=== PATIENT | male | born 1950 | race Caucasian/White ===

== ENCOUNTER 2019-03-23 09:18 | Emergency (ER) | payer OTHER ==
--- NOTE | 2019-03-23 09:40 | RAD REPORT ---
EXAM DESCRIPTION: CT - Ct Stroke Brain Wo Cont - 03/23/2019 9:28 am CLINICAL HISTORY: CONFUSED Headache, drowsiness, CVA symptomology COMPARISON: No comparisons TECHNIQUE: All CT scans are performed using dose optimization technique as appropriate and may inclu de automated exposure control or mA/KV adjustment according to patient size. FINDINGS: No intracranial hemorrhage, hydrocephalus or extra-axial fluid collection.No areas of brai n edema or evidence of midline shift. A hyperdense middle cerebral artery branches seen in the left s ylvian fissure. The paranasal sinuses and mastoids are clear. The calvarium is intact. IMPRESSION: No acute hemorrhage or hydrocephalus. A hyperdense middle cerebral artery branch vessel in the sylvian fissure is identified on the left. While often this is artifactual, it could indicate acute occlusion/thrombus. MR brain/MRA hopi Costello may be useful for further clarification. The findings were discussed with Dr. Bahena on 03/23/2019 at 9:35 a.m. by telephone.
[2019-03-23 10:04] LABS: Absolute Lymphocytes (CBC) 0.6 K/uL (0.7-4.9); Absolute Monocytes 0.3 K/uL (0.1-1.3); Absolute Neutrophil 4.1 K/uL (1.8-8.0); Basophils % 0.7 % (0-1.3); Hematocrit 41.2 % (39.6-49.0); Lymphocytes % 11.5 % (15.3-44.8); MPV 10.1 fL (7.6-11.3); RBC Red Blood Cell Count 4.41 M/uL (4.33-5.43)
[2019-03-23 10:08] LABS: Protime INR 0.93
[2019-03-23 10:18] LABS: Potassium 5.1 mmol/L (3.5-5.1)
--- NOTE | 2019-03-23 10:39 | RAD REPORT ---
EXAM DESCRIPTION: RAD - Chest Single View - 03/23/2019 10:06 am CLINICAL HISTORY: Shortness of breath, weakness COMPARISON: May 2007 TECHNIQUE: AP portable chest image was obtained 0959 hours . FINDINGS: Lung volumes are low. Delete select Sternotomy wires have been placed since the far remote comparison. No peripheral mass, consolidation or acute failure finding. Heart and vasculature are no rmal. No measurable pleural effusion and no pneumothorax. No acute bony abnormality seen. No acute ao rtic findings suspected. IMPRESSION: No acute cardiopulmonary process. No suspicious change from comparison.
--- NOTE | 2019-03-23 10:49 | ER ---
Nurse's Notes [facility] Name: Garth Villela Age: 69 yrs Sex: Male : 1950 Arrival Date: 03/23/2019 Time: 09:19 Bed 3 Private MD: Garth Osorio T Diagnosis: Cerebral infarction Presentation: 03/23 09:20 Presenting complaint: states: "He woke up this morning at 0530 and let me sleep in ss until 0915 and he told me he was having trouble with the remote when he woke up and I noticed his speech was off." Pt reports he is intermittently getting his words mixed up since he woke up this morning. Denies pain. VAN scoring negative. Transition of care: patient was not received from another setting of care. Onset of symptoms is unknown. Risk Assessment: Do you want to hurt yourself or someone else? Patient reports no desire to harm self or others. Initial Sepsis Screen: Does the patient meet any 2 criteria? No. Patient's initial sepsis screen is negative. Does the patient have a suspected source of infection? No. Patient's initial sepsis screen is negative. Care prior to arrival: None. 09:20 Method Of Arrival: Ambulatory ss 09:20 Acuity: YUE 2 ss Triage Assessment: 09:20 General: Appears in no apparent distress. tw2 Historical: - Allergies: 09:37 No Known Allergies; ss - Home Meds: 09:37 aspirin 81 mg Oral TbEC 1 tab once daily [Active]; "something for cholesterol" [Active];ss - PMHx: 09:37 High Cholesterol; ss - PSHx: 09:37 CABG; ss - Immunization history:: Adult Immunizations up to date. - Social history:: Smoking status: Patient/guardian denies using tobacco. - Ebola Screening: : Patient denies exposure to infectious person Patient denies travel to an Ebola-affected area in the 21 days before illness onset. Screenin:49 Patient has been NPO before screening. The patient is alert, able to follow commands. tw2 The patient does not exhibit slurred or garbled speech The patient is not exhibiting difficulty speaking. The patient does not exhibit difficulty understanding words. The patient is able to swallow own secretions with no drooling or need for suction. Patient tolerated one teaspoon of water. No drooling, immediate coughing, gurgling, or clearing of the throat was noted. The patient tolerated 90mL of water. No drooling, immediate coughing, gurgling, or clearing of the throat was noted. The patient passed the bedside swallow screening. Oral medications may be given as ordered. Contact Physician for further diet orders. Provider notified of bedside swallow screening results: Yahir Bahena MD. 09:59 Abuse screen: Denies threats or abuse. Nutritional screening: No deficits noted. tw2 Tuberculosis screening: No symptoms or risk factors identified. Fall Risk Secondary diagnosis (15 points) impaired mobility. Assessment: 09:21 Reassessment: To CT VIA wheelchair. ss 09:30 General: Appears in no apparent distress. well groomed, Behavior is calm, cooperative, tw2 appropriate for age. Pain: Denies pain. Neuro: Level of Consciousness is awake, alert, obeys commands, Oriented to person, place, time, situation, Speech with expressive aphasia noted. Neuro: Exceptional Children Teacher are equal bilaterally Moves all extremities. Full function. Cardiovascular: Heart tones S1 S2 Patient's skin is warm and dry. Respiratory: Airway is patent Respiratory effort is even, unlabored, Respiratory pattern is regular, symmetrical, Breath sounds are clear bilaterally. GI: No signs and/or symptoms were reported involving the gastrointestinal system. Abdomen is flat, non-distended, Bowel sounds present X 4 quads. : No signs and/or symptoms were reported regarding the genitourinary system. EENT: No signs and/or symptoms were reported regarding the EENT system. Derm: No signs and/or symptoms reported regarding the dermatologic system. Musculoskeletal: Range of motion: intact in all extremities. 10:30 Reassessment: Patient appears in no apparent distress at this time. No changes from tw2 previously documented assessment. Patient and/or family updated on plan of care and expected duration. Pain level reassessed. Patient is alert, oriented x 3, equal unlabored respirations, skin warm/dry/pink. 10:46 Reassessment: pt to MRI at this time via w/c. tw2 11:47 Reassessment: Patient appears in no apparent distress at this time. No changes from tw2 previously documented assessment. Patient and/or family updated on plan of care and expected duration. Pain level reassessed. Patient is alert, oriented x 3, equal unlabored respirations, skin warm/dry/pink. Vital Signs: 09:37 BP 184 / 79; Pulse 68; Resp 16; Temp 98.2(TE); Pulse Ox 100% on R/A; Weight 88.45 kg; ss Height 6 ft. 0 in. (182.88 cm); Pain 0/10; 10:17 BP 131 / 77; Pulse 60; Resp 15; Pulse Ox 100% on R/A; tw2 11:17 BP 131 / 77; Pulse 61; Resp 17; Pulse Ox 98% on R/A; tw2 11:47 BP 147 / 74; Pulse 64; Resp 17; Pulse Ox 98% on R/A; tw2 09:37 Body Mass Index 26.45 (88.45 kg, 182.88 cm) NIH Stroke Scale Scores: 11:23 NIHSS Score: 1 ED Course: 09:19 Patient arrived in ED. rg4 09:20 Garth Osorio MD is Private Physician. rg4 09:27 Bed in low position. Call light in reach. Side rails up X2. Adult w/ patient. Cardiac tw2 monitor on. Pulse ox on. NIBP on. 09:29 CT Stroke Brain w/o Contrast In Process Unspecified. EDMS 09:29 Hellen Monsalve, PHILIP is Primary Nurse. hb 09:31 Yahir Bahena MD is Attending Physician. gs 09:35 Triage completed. ss 09:37 Arm band placed on right wrist. ss 09:43 EKG done, by pathology tech. reviewed by Yahir Bahena MD. at1 09:55 Inserted saline lock: 20 gauge in left antecubital area, using aseptic technique. Blood tw2 collected. 10:03 Stroke CXR 1 View In Process Unspecified. EDMS 10:15 initiated a transfer with Saida at the [facility]. eb 10:[address] Torres the neurologist visitor services information assistant for [facility] with Dr. Bahena for patient eb transfer consultation. 10:[address] Eugene the hospitalist visitor services information assistant for [facility] with Dr. Bahena for eb patient transfer consultation. 10:54 Patient moved to [facility] via wheelchair. em2 10:57 administrative approval given by Saida Barnett RN from the [facility] transfer eb center/ patient has been accepted to [facility] 22 tower bed 2234/ Dr. Eugene has accepted the patient in transfer/ report to be called [phone]. 11:00 MRI - Brain Wo Cont In Process Unspecified. EDMS 11:12 No provider procedures requiring assistance completed. Patient transferred, IV remains tw2 in place. 11:16 Report given to Jesi Cintron RN. tw2 11:19 MRI completed. Patient tolerated well. Patient moved back from MRI. em2 Administered Medications: 11:45 Drug: Aspirin Chewable Tablet 324 mg Route: PO; tw2 11:47 Follow up: Response: No adverse reaction tw2 Point of Care Testing: Blood Glucose: 10:12 Blood Glucose: 116 mg/dL; tw2 Ranges: Output: 11:17 Urine: 500ml (Voided); Total: 500ml. tw2 Outcome: 10:48 ER care complete, transfer ordered by . gs 11:49 Patient left the ED. tw2 NIH Stroke Scale - NIH Stroke Score Date: 03/23/2019 Time: 11:23 Total Score = 1 1a. Level of Consciousness (LOC) - 0(Alert) 1b. Level of Consciousness (LOC) (Year \\T\\ Age) - 0(Both) 1c. LOC Commands (Open \\T\\ Closes Eyes/Power System Operator) - 0(Both) 2. Best Gaze (Lateral Gaze Paresis) - 0(Normal) 3. Visual Field Loss - 0(No visual loss) 4. Facial Palsy - 0(Normal) 5a. Left Arm: Motor (10-second hold) - 0(No drift) 5b. Right Arm: Motor (10-second hold) - 0(No drift) 6a. Left Leg: Motor (5-second hold - always test supine) - 0(No drift) 6b. Right Leg: Motor (5-second hold - always test supine) - 0(No drift) 7. Limb Ataxia (finger/nose \\T\\ heel/nolen - test with eyes open) - 0(Absent) 8. Sensory Loss (pinprick arms/legs/face) - 0(Normal) 9. Best Language: Aphasia (description/naming/reading) - 0(No aphasia) 10. Dysarthria (speech clarity - read or repeat words) - 1(Mild to Moderate) 11. Extinction and Inattention (visual/tactile/auditory/spatial/personal) - 0(No abnormality) Initials: Signatures: Dispatcher [employer] Lisbeth Lawson, RN RN Jamison Caballero em2 Violette Valladares, insurance sales associate EKG Tat1 Hellen Monsalve RN RN Telma Rodgers RN RN tw2 Carmenza Mcgee rg4 Yahir Bahena MD MD gs Botello, Elizabeth eb
--- NOTE | 2019-03-23 10:49 | EDPHYS ---
Physician Documentation [facility] Name: Garth Villela Age: 69 yrs Sex: Male : 1950 Arrival Date: 03/23/2019 Time: 09:19 Bed 3 Private MD: Garth Osorio T ED Physician Yahir Bahena HPI: 03/23 10:43 This 69 yrs old Male presents to ER via Ambulatory with complaints of gs difficulty speaking. 10:43 The patient presents to the emergency department with a speech or higher order brain gs function problem, aphasia. Onset: The symptoms/episode began/occurred today, at 05:30. Context: occurred at home. Associated signs and symptoms: Pertinent negatives: altered mental status. Severity of symptoms: At their worst the symptoms were moderate in the emergency department the symptoms are unchanged. Patient's baseline: Neuro: alert and fully oriented, Motor: no deficits, Ambulation: walks without assistance. The patient has not experienced similar symptoms in the past. Historical: - Allergies: 09:37 No Known Allergies; ss - Home Meds: 09:37 aspirin 81 mg Oral TbEC 1 tab once daily [Active]; "something for cholesterol" [Active];ss - PMHx: 09:37 High Cholesterol; ss - PSHx: 09:37 CABG; ss - Immunization history:: Adult Immunizations up to date. - Social history:: Smoking status: Patient/guardian denies using tobacco. - Ebola Screening: : Patient denies exposure to infectious person Patient denies travel to an Ebola-affected area in the 21 days before illness onset. ROS: 10:43 All other systems are negative. gs Exam: 10:43 Head/Face: Normocephalic, atraumatic. Eyes: Pupils equal round and reactive to light, gs extra-ocular motions intact. Lids and lashes normal. Conjunctiva and sclera are non-icteric and not injected. Cornea within normal limits. Periorbital areas with no swelling, redness, or edema. ENT: Nares patent. No nasal discharge, no septal abnormalities noted. Tympanic membranes are normal and external auditory canals are clear. Oropharynx with no redness, swelling, or masses, exudates, or evidence of obstruction, uvula midline. Mucous membranes moist. Neck: Trachea midline, no thyromegaly or masses palpated, and no cervical lymphadenopathy. Supple, full range of motion without nuchal rigidity, or vertebral point tenderness. No Meningismus. Chest/axilla: Normal chest wall appearance and motion. Nontender with no deformity. No lesions are appreciated. Cardiovascular: Regular rate and rhythm with a normal S1 and S2. No gallops, murmurs, or rubs. Normal PMI, no JVD. No pulse deficits. Respiratory: Lungs have equal breath sounds bilaterally, clear to auscultation and percussion. No rales, rhonchi or wheezes noted. No increased work of breathing, no retractions or nasal flaring. Abdomen/GI: Soft, non-tender, with normal bowel sounds. No distension or tympany. No guarding or rebound. No evidence of tenderness throughout. Back: No spinal tenderness. No costovertebral tenderness. Full range of motion. Skin: Warm, dry with normal turgor. Normal color with no rashes, no lesions, and no evidence of cellulitis. MS/ Extremity: Pulses equal, no cyanosis. Neurovascular intact. Full, normal range of motion. 10:43 Constitutional: The patient appears alert, awake. 10:43 ECG was reviewed by the Attending Physician. Vital Signs: 09:37 BP 184 / 79; Pulse 68; Resp 16; Temp 98.2(TE); Pulse Ox 100% on R/A; Weight 88.45 kg; ss Height 6 ft. 0 in. (182.88 cm); Pain 0/10; 10:17 BP 131 / 77; Pulse 60; Resp 15; Pulse Ox 100% on R/A; tw2 11:17 BP 131 / 77; Pulse 61; Resp 17; Pulse Ox 98% on R/A; tw2 11:47 BP 147 / 74; Pulse 64; Resp 17; Pulse Ox 98% on R/A; tw2 09:37 Body Mass Index 26.45 (88.45 kg, 182.88 cm) NIH Stroke Scale Scores: 11:23 NIHSS Score: 1 gs MDM: 09:34 Patient medically screened. gs 10:43 Data reviewed: vital signs, nurses notes, lab test result(s), EKG, radiologic studies. gs Counseling: I had a detailed discussion with the patient and/or guardian regarding: the historical points, exam findings, and any diagnostic results supporting the discharge/admit diagnosis, lab results, radiology results, the need to transfer to another facility. 11:23 Response to treatment: the patient's symptoms have mildly improved after treatment, and gs as a result, I will transfer. 03/23 09:43 Order name: Basic Metabolic Panel; Complete Time: 10:39 03/23 09:43 Order name: CBC with Diff; Complete Time: 10:39 03/23 09:22 Order name: CT Stroke Brain w/o Contrast; Complete Time: 10:39 03/23 09:43 Order name: Protime (+inr); Complete Time: 10:39 03/23 09:43 Order name: Ptt, Activated; Complete Time: 10:39 03/23 09:42 Order name: MRI - Brain Wo Cont; Complete Time: 11:27 03/23 09:43 Order name: Stroke CXR 1 View; Complete Time: 10:41 03/23 09:43 Order name: EKG; Complete Time: 09:44 03/23 09:43 Order name: Accucheck; Complete Time: 10:11 03/23 09:43 Order name: Cardiac monitoring; Complete Time: 10:09 03/23 09:43 Order name: EKG - Nurse/Tech; Complete Time: 10:09 03/23 09:43 Order name: IV Saline Lock; Complete Time: 09:57 03/23 09:43 Order name: Labs collected and sent; Complete Time: 09:57 03/23 09:43 Order name: NPO; Complete Time: 10:14 03/23 09:43 Order name: O2 Per Protocol; Complete Time: 09:58 03/23 09:43 Order name: O2 Sat Monitoring; Complete Time: 09:57 03/23 09:43 Order name: Stroke Swallow Screen; Complete Time: 10:14 gs EC:43 Rate is 63 beats/min. Rhythm is regular. KS interval is normal. QRS interval is normal. gs T waves are Normal. No ST changes noted. Clinical impression: Normal ECG. Interpreted by me. Administered Medications: 11:45 Drug: Aspirin Chewable Tablet 324 mg Route: PO; tw2 11:47 Follow up: Response: No adverse reaction tw2 Point of Care Testing: Blood Glucose: 10:12 Blood Glucose: 116 mg/dL; tw2 Ranges: Critical Glucose Levels:Adult <50 mg/dl or >400 mg/dl <40 mg/dl or >180 mg/dl Disposition: 03/23/19 10:48 Transfer ordered to [facility]. Diagnosis is Cerebral infarction. - Reason for transfer: Higher level of care. - Accepting physician is gerber. - Condition is Stable. - Problem is new. - Symptoms have improved. Critical care time excluding procedures: 10:43 Critical care time: Bedside Care: 10 minutes, Consultation: 10 minutes, Family gs Intervention: 10 minutes. Total time: 30 minutes NIH Stroke Scale - NIH Stroke Score Date: 03/23/2019 Time: 11:23 Total Score = 1 1a. Level of Consciousness (LOC) - 0(Alert) 1b. Level of Consciousness (LOC) (Year \\T\\ Age) - 0(Both) 1c. LOC Commands (Open \\T\\ Closes Eyes/Tire Classifier) - 0(Both) 2. Best Gaze (Lateral Gaze Paresis) - 0(Normal) 3. Visual Field Loss - 0(No visual loss) 4. Facial Palsy - 0(Normal) 5a. Left Arm: Motor (10-second hold) - 0(No drift) 5b. Right Arm: Motor (10-second hold) - 0(No drift) 6a. Left Leg: Motor (5-second hold - always test supine) - 0(No drift) 6b. Right Leg: Motor (5-second hold - always test supine) - 0(No drift) 7. Limb Ataxia (finger/nose \\T\\ heel/nolen - test with eyes open) - 0(Absent) 8. Sensory Loss (pinprick arms/legs/face) - 0(Normal) 9. Best Language: Aphasia (description/naming/reading) - 0(No aphasia) 10. Dysarthria (speech clarity - read or repeat words) - 1(Mild to Moderate) 11. Extinction and Inattention (visual/tactile/auditory/spatial/personal) - 0(No abnormality) Initials: Signatures: Dispatcher [employer] EDRI Lisbeth Man RN RN ss Telma Rodgers RN RN tw2 Yahir Bahena MD MD gs Corrections: (The following items were deleted from the chart) 10:54 09:44 Brain Wo Cont ordered. [facility] EDRI 11:49 10:48 03/23/2019 10:48 Transfer ordered to [facility]. tw2 Diagnosis is Cerebral infarction. Reason for transfer: Higher level of care. Accepting physician is gerber. Condition is Stable. Problem is new. Symptoms have improved. gs
--- NOTE | 2019-03-23 11:22 | RAD REPORT ---
EXAM DESCRIPTION: MRI - Brain Wo Cont - 03/23/2019 11:10 am CLINICAL HISTORY: Aphasia, difficulty with speech, transient alteration of awareness COMPARISON: CT head same date TECHNIQUE: Sagittal T1-weighted images were obtained along with axial PD, heavily T2-weighted and T2 -FLAIR images. Axial DWI and ADC mapping sequences were also obtained along with coronal heavily T2-w eighted images. FINDINGS: A 2 centimeter area of serpiginous cortical signal abnormality on diffusion-weighted imagi ng noted lateral margin left frontoparietal junction. Corresponding diminished signal seen on ADC map ping. Additional punctate areas of hyperintense diffusion signal seen over the convexity of the left cerebral lobe. These are mostly parietal in location. There is additional abnormal diffusion signal i n the left insular cortex. There is again corresponding diminished signal on ADC mapping. Correspondi ng T2 signal abnormalities are also present more difficult to visualize. Patient has minimal chronic ischemic change. Atrophy changes are mild. There is no edema or shift of midline structures. No extra-axial fluid collections. Malone-matter/whit e matter junction is preserved. Signal voids are seen as a normal finding in the major intracranial v essels. No globe or orbital content abnormality. No sella or supra sella abnormality. Mastoid air cells and paranasal sinuses are clear. IMPRESSION: Multiple sites of acute nonhemorrhagic CVA noted in the left cerebral hemisphere. Infarction changes are present in the left insular cortex, at the lateral aspect of the left frontal parietal junction near the central and precentral sulci. Additional punctate infarctions are present in the left parietal lobe. No mass effect or edema. No midline shift. Underlying atrophy and chronic ischemic changes are mild p eer
[2019-03-23] MEDS ORDERED: ASPIRIN 81 MG CHEWABLE TABLET ONE (11:56)
--- NOTE | 2019-03-23 14:45 | EKG ---
Test Date: 2019-03-23 Test Time: 09:34:23 Vial Gauger: JAMAL MEASUREMENT RESULTS: Intervals: Rate: 63 IN: 160 QRSD: 92 QT: 414 QTc: 423 [place]: P: 43 IN: 160 QRS: 39 T: 48 INTERPRETIVE STATEMENTS: Normal sinus rhythm Normal ECG No previous ECG available for comparison Electronically Signed On 03-23-19 14:43:57 CDT by Black Zuniga
== END 2019-03-23 11:49 | disposition short-term general hospital (02) ==
LOC: ER 09:18
DX: I63.9 Cerebral infarction, unspecified (principal); R29.701 NIHSS score 1; E78.00 Pure hypercholesterolemia, unspecified; Z79.82 Long term (current) use of aspirin; Z95.1 Presence of aortocoronary bypass graft
CPT/HCPCS: 36415; 70450; 70551; 71045; 80048; 82962; 85025; 85610; 85730; 93005; 99285

== ENCOUNTER 2024-08-07 07:12 | Day surgery (SDC) | payer OTHER ==
[2024-08-06 09:01] LABS: Absolute Eosinophils 0.4 K/uL (0-0.5); Absolute Lymphocytes (CBC) 1.3 K/uL (0.7-4.9); Absolute Monocytes 0.4 K/uL (0.1-1.3); Absolute Neutrophil 2.3 K/uL (1.8-8.0); Basophils % 0.4 % (0-1.3); Eosinophils % 8.2 % (0-4.4); Hematocrit 39.6 % (39.6-49.0); Hemoglobin 13.2 g/dL (13.6-17.9); Lymphocytes % 29.5 % (15.3-44.8); MCH 31.5 pg (27.0-35.0); MCHC 33.4 g/dL (32.0-36.0); MCV 94.3 fL (80-100); MPV 8.5 fL (7.6-11.3); Monocytes % 8.7 % (3.3-12.3); Neutrophils % 53.2 % (41.7-73.7); Nucleated Red Blood Cells % 0.1 % (0-0); Platelets 258 thou/uL (152-406); Red Cell Distribution Width 13.2 % (12.1-15.2)
[2024-08-06 09:02] LABS: Anion Gap 6.3 mEq/L (5.0-15.0); Potassium 4.3 mEq/L (3.5-5.1)
[2024-08-06 09:04] LABS: PT Prothrombin Time 10.6 SECONDS (9.4-12.5); Protime INR 0.94
--- NOTE | 2024-08-06 11:12 | RAD REPORT ---
EXAMINATION: TWO VIEW CHEST XR CLINICAL INDICATION: Male, 74 years old. [facility] Pre op pending abdominal/carotid angiogram. Hypertension TECHNIQUE: 2 view radiographs of the chest were performed. COMPARISON: 03/23/2019 FINDINGS: The lungs are well inflated and clear. No pneumothorax or sizable effusion. The heart is normal in si ze. Status post CABG. Mediastinal contours are unremarkable. IMPRESSION: No acute or significant abnormalities.
[2024-08-07] MEDS ORDERED: HEPA 1000U/500MLS 2,000 UNIT/1,000 ML BAG IV ONE (07:19)
[2024-08-07] MEDS ORDERED: CLOPIDOGREL 75 MG TABLET ONE (07:20)
[2024-08-07] MEDS ORDERED: VERAPAMIL HCL 10 MG/4 ML VIAL IV ONE (07:20)
[2024-08-07] MEDS ORDERED: ATROPINE SULF 1 MG/10 ML SYR IV ONE (07:20)
[2024-08-07] MEDS ORDERED: HEPARIN 10,000 UNIT/10 ML VIAL IV ONE (07:20)
[2024-08-07] MEDS ORDERED: HEPARIN 5000 UNIT/ML 1 ML VIAL ONE (07:20)
[2024-08-07] MEDS ORDERED: LIDOCAINE 1% 20 ML MDV ONE (07:20)
[2024-08-07] MEDS ORDERED: TICAGRELOR 90 MG TABLET PO ONE (07:21)
[2024-08-07] MEDS ORDERED: ASPIRIN 325 MG TAB ONE (07:21)
[2024-08-07] MEDS ORDERED: NITROGLYCERIN/D5W 50 MG/250 ML BTL IV ONE (07:22)
[2024-08-07] MEDS ORDERED: NA CHLORIDE 0.9% 500 ML ONE (07:30)
[2024-08-07] MEDS ORDERED: MIDAZOLAM HCL 2 MG/2 ML INJ ONE (07:31)
[2024-08-07] MEDS ORDERED: FENTANYL CITR 100 MCG/2 ML ONE (07:31)
[2024-08-07 10:43] VITALS: O2SAT 97
[2024-08-07 12:58] VITALS: BP 155/68
--- NOTE | 2024-08-08 13:05 | EKG ---
Test Date: 2024-08-06 Test Time: 08:28:13 Department Director: YOLANDA MEASUREMENT RESULTS: Intervals: Rate: 56 TN: 168 QRSD: 94 QT: 454 QTc: 438 [place]: P: 49 TN: 168 QRS: 31 T: 56 INTERPRETIVE STATEMENTS: Sinus bradycardia Low voltage QRS Incomplete right bundle branch block Borderline ECG Compared to ECG 03/23/2019 09:34:23 Low QRS voltage now present Incomplete right bundle-branch block now present Sinus rhythm no longer present Electronically Signed On 08-08-24 12:57:28 CDT by Lemuel Dhaliwal
--- NOTE | 2024-08-08 22:21 | OP ---
Date of Procedure: 08/07/2024 Surgeon: Lemuel Dhaliwal Procedure Performed: 1.Bilateral carotid angiogram. 2.Abdominal aortogram with peripheral runoff. Indication For Procedure: History of carotid artery stenting with abnormal carotid duplex and claudi cations with abnormal JAYLIN. Complications: None. Estimated Blood Loss: Less than 50 cc. Access: The right common femoral artery. This was closed by a Mynx. Sedation Time: 30 minutes with a 1 of Versed and 50 of fentanyl. Description Of Procedure: After risks, benefits, and alternatives were explained to the patient, pat ient agreed to proceed with the procedure and signed informed consent. The patient was brought back to the wood and wood products labourer, prepped and draped in a sterile fashion. Time-out was performed. Sedation was admi nistered. Next, an ultrasound-guided right common femoral artery access was obtained. Five-Irish s ramone was inserted and next, Grace 1 catheter was advanced to the aortic root, where the selective ang iogram of the carotid arteries were done that was later exchanged for an Omniflush catheter for the l ower abdominal aorta angiogram that was later exchanged for an IM catheter for the left leg runoff an d then the right leg runoff was done through the right common femoral artery sheath. In the end of p rocedure, sheath was removed. Mynx was applied. Hemostasis achieved. The patient was moved back to the recovery room in stable condition. Findings: 1.Right internal carotid artery, there is 50% disease. 2.Left internal carotid artery, stent is patent. It is a little bit underexpanded with 40% ISR. 3.Lower abdominal aorta is patent. 4.Right external iliac, common femoral artery is patent. 5.Right SFA diffuse 100% ISR heavy calcified. 6.We are not able to see below the knee, if there are any runoffs. 7.Left common iliac artery, external iliac artery, and left the MANAGER PLUMBING are patent. 8.The left SFA, mid stent 100% occluded, then diffuse heavy calcified. 9.Unable to see if there are any runoffs below the left knee due to poor injections. Assessment And Plan: 1.Moderate bilateral internal carotid artery disease, moderate left internal carotid artery stent IS R. 2.Significant bilateral SFA 100% ISR. 3.The management will be to consult Vascular Surgery to evaluate for vascular intervention versus a bypass. YOON/PERI Voice ID: [id number] Report ID: [id number]
== END 2024-08-07 12:06 | disposition home or self-care (01) ==
LOC: CCL 07:12
PROVIDERS: ATTEND Internal Medicine Interventional Cardiology
DX: I65.23 Occlusion and stenosis of bilateral carotid arteries (principal); I70.223 Atherosclerosis of native arteries of extremities with rest pain, bilateral legs; I70.92 Chronic total occlusion of artery of the extremities; T82.856A Stenosis of peripheral vascular stent, initial encounter; I25.10 Atherosclerotic heart disease of native coronary artery without angina pectoris; I10 Essential (primary) hypertension; E78.5 Hyperlipidemia, unspecified; E03.9 Hypothyroidism, unspecified; K21.9 Gastro-esophageal reflux disease without esophagitis; Z95.1 Presence of aortocoronary bypass graft; Z87.891 Personal history of nicotine dependence; Z79.02 Long term (current) use of antithrombotics/antiplatelets; Z79.82 Long term (current) use of aspirin; Z79.899 Other long term (current) drug therapy; Z82.49 Family history of ischemic heart disease and other diseases of the circulatory system
CPT/HCPCS: 93005; 85025; 80048; 36415; 85610; 85730; 71046; 75630; 36222; 76937; C1893; J2001; J2250; J3010; J7040; 36200; 99152; 99153; J0461; J1644